=== PATIENT | male | born 1945 | race Two or more races ===

== ENCOUNTER 2019-08-20 08:05 | Emergency (ER) | payer MEDICARE ==
[~2019-08-20] VITALS: Ht 172.7 cm; Wt 70.3 kg
[2019-08-20 08:58] LABS: BASOPHILS PERCENT AUTO 1 % (0-2); EOSINOPHILS ABSOLUTE AUTO 0.45 K/mm3 (0.00-0.68); EOSINOPHILS PERCENT AUTO 5 % (0-6); Hematocrit 39.2 % (37.0-53.0); Hemoglobin 11.8 g/dL (13.5-17.5); IMMATURE GRAN ABSOLUTE AUTO 0.03 K/mm3 (0.00-0.10); IMMATURE GRAN PERCENT AUTO 0 % (0-1); LYMPHOCYTES ABSOLUTE AUTO 1.92 K/mm3 (0.84-5.20); LYMPHOCYTES PERCENT AUTO 21 % (21-46); MONOCYTES ABSOLUTE AUTO 0.73 K/mm3 (0.16-1.47); MONOCYTES PERCENT AUTO 8 % (4-13); Mean Corpuscular HGB 23.8 pg (26.0-34.0); Mean Corpuscular HGB Conc 30.1 g/dL (31.5-36.5); Mean Corpuscular Volume 79 fL (80-100); Mean Platelet Volume 10.4 fL (9.1-12.4); NEUTROPHILS ABSOLUTE AUTO 6.12 K/mm3 (1.96-9.15); NEUTROPHILS PERCENT AUTO 66 % (41-73); Platelet Count 299 K/mm3 (150-400); RDW Coefficient Variation 19.9 % (11.7-14.2); RDW Standard Deviation 55.3 fL (35.1-46.3); Red Blood Cell Count 4.95 M/mm3 (4.30-5.90); White Blood Cell Count 9.35 K/mm3 (4.00-11.30)
[2019-08-20 09:14] LABS: Alanine Aminotransfer (ALT/SGP 22 U/L (12-78); Albumin, Blood 3.3 g/dL (3.4-5.0); Albumin/Globulin Ratio 0.7 (0.8-1.8); Alk Phos 88 U/L (50-136); Anion Gap 7 mmol/L (6-16); Aspartate Aminotrans (AST/SGOT 30 U/L (12-37); Bilirubin, Total 0.4 mg/dL (0.1-1.0); Blood Urea Nitrogen 12 mg/dL (8-24); CO2, Blood 23 mmol/L (21-32); Calcium, Blood 9.1 mg/dL (8.5-10.1); Chloride, Blood 108 mmol/L (98-108); Creatinine, Blood 0.71 mg/dL (0.60-1.20); Globulin, Blood 4.5 g/dL (2.2-4.0); Glomerular Filtration Rate >60 (60-); Glucose, Blood 74 mg/dL (70-99); Potassium, Blood 4.1 mmol/L (3.5-5.5); Sodium, Blood 138 mmol/L (136-145); Total Protein, Blood 7.8 g/dL (6.4-8.2); Troponin I <0.015 ng/mL (0.000-0.040)
[2019-08-20] MEDS ORDERED: SILDENAFIL20 MG PO (09:39)
[2019-08-20] MEDS ORDERED: PROAIR RESPICL90 MCG INH (09:39)
[2019-08-20] MEDS ORDERED: Zocor20 MG PO ×2 (09:39→11:36)
[2019-08-20] MEDS ORDERED: DULO60 PO (09:40)
[2019-08-20] MEDS ORDERED: PANT40 PO (09:40)
[2019-08-20] MEDS ORDERED: FLUT1DIS8 INH ×2 (09:40→11:36)
[2019-08-20] MEDS ORDERED: CLOP75 PO ×2 (09:40→11:36)
[2019-08-20] MEDS ORDERED: MEMA10 PO ×2 (09:40→11:36)
[2019-08-20] MEDS ORDERED: SPIRIVA RESPIMAT4 GM (09:40)
[2019-08-20] MEDS ORDERED: LISI20 PO (09:41)
[2019-08-20] MEDS ORDERED: BUPR150ER PO ×2 (09:41→11:36)
[2019-08-20] MEDS ORDERED: METO50ER PO (09:41)
[2019-08-20] MEDS ORDERED: Ventolin/Prove6.7 GM INH (11:36)
[2019-08-20] MEDS ORDERED: Toprol Xl50 MG PO (11:36)
[2019-08-20] MEDS ORDERED: Cymbalta60 MG PO (11:36)
[2019-08-20] MEDS ORDERED: Protonix40 MG PO (11:36)
[2019-08-20] MEDS ORDERED: SPIRIVA RESPIMAT4 GM INH (11:36)
[2019-08-20] MEDS ORDERED: ZESTRIL40 MG PO (11:36)
[2019-08-20] MEDS ORDERED: SILD25T PO (11:36)
== END 2019-08-20 13:00 | disposition home or self-care (01) ==
LOC: EDBD 08:05 → ER 08:05
PROVIDERS: Emergency Medicine
DX: J44.9 Chronic obstructive pulmonary disease, unspecified (principal); I10 Essential (primary) hypertension; I25.2 Old myocardial infarction; F17.210 Nicotine dependence, cigarettes, uncomplicated; Z79.899 Other long term (current) drug therapy; Z79.02 Long term (current) use of antithrombotics/antiplatelets
CPT/HCPCS: 71046; 80053; 83880; 84484; 85025; 93005; 93010; 99284-25

== ENCOUNTER 2019-09-24 10:22 | Emergency (ER) | payer MEDICARE ==
[~2019-09-24] VITALS: Ht 172.7 cm; Wt 72.6 kg
[~2019-09-24 10:22] MED LIST: BUPR150ER PO; CLOP75 PO; Cymbalta60 MG PO; DULO60 PO; FLUT1DIS8 INH; LISI20 PO; MEMA10 PO; METO50ER PO; PANT40 PO; PROAIR RESPICL90 MCG INH; Protonix40 MG PO; SILD25T PO; SILDENAFIL20 MG PO; SPIRIVA RESPIMAT4 GM; SPIRIVA RESPIMAT4 GM INH; Toprol Xl50 MG PO; Ventolin/Prove6.7 GM INH; ZESTRIL40 MG PO; Zocor20 MG PO
[2019-09-24 11:34] LABS: BASOPHILS ABSOLUTE AUTO 0.09 K/mm3 (0.00-0.23); BASOPHILS PERCENT AUTO 1 % (0-2); EOSINOPHILS ABSOLUTE AUTO 0.24 K/mm3 (0.00-0.68); EOSINOPHILS PERCENT AUTO 3 % (0-6); Hematocrit 39.6 % (37.0-53.0); Hemoglobin 12.1 g/dL (13.5-17.5); IMMATURE GRAN ABSOLUTE AUTO 0.03 K/mm3 (0.00-0.10); IMMATURE GRAN PERCENT AUTO 0 % (0-1); LYMPHOCYTES ABSOLUTE AUTO 1.71 K/mm3 (0.84-5.20); LYMPHOCYTES PERCENT AUTO 18 % (21-46); MONOCYTES ABSOLUTE AUTO 0.83 K/mm3 (0.16-1.47); MONOCYTES PERCENT AUTO 9 % (4-13); Mean Corpuscular HGB 24.2 pg (26.0-34.0); Mean Corpuscular HGB Conc 30.6 g/dL (31.5-36.5); Mean Corpuscular Volume 79 fL (80-100); Mean Platelet Volume 10.4 fL (9.1-12.4); NEUTROPHILS ABSOLUTE AUTO 6.55 K/mm3 (1.96-9.15); NEUTROPHILS PERCENT AUTO 69 % (41-73); Platelet Count 277 K/mm3 (150-400); RDW Coefficient Variation 21.1 % (11.7-14.2); RDW Standard Deviation 60.3 fL (35.1-46.3); White Blood Cell Count 9.45 K/mm3 (4.00-11.30)
[2019-09-24 11:57] LABS: Alanine Aminotransfer (ALT/SGP 19 U/L (12-78); Albumin, Blood 3.2 g/dL (3.4-5.0); Albumin/Globulin Ratio 0.7 (0.8-1.8); Alk Phos 99 U/L (50-136); Anion Gap 5 mmol/L (6-16); Aspartate Aminotrans (AST/SGOT 26 U/L (12-37); Bilirubin, Total 0.5 mg/dL (0.1-1.0); Blood Urea Nitrogen 13 mg/dL (8-24); Bun/Creatinine Ratio 16.4 (12.0-20.0); CO2, Blood 27 mmol/L (21-32); Calcium, Blood 8.5 mg/dL (8.5-10.1); Chloride, Blood 106 mmol/L (98-108); Creatinine, Blood 0.79 mg/dL (0.60-1.20); Globulin, Blood 4.6 g/dL (2.2-4.0); Glomerular Filtration Rate >60 (60-); Glucose, Blood 88 mg/dL (70-99); Potassium, Blood 4.1 mmol/L (3.5-5.5); Sodium, Blood 138 mmol/L (136-145); Total Protein, Blood 7.8 g/dL (6.4-8.2); Troponin I <0.015 ng/mL (0.000-0.040)
[2019-09-24] MEDS ORDERED: Prednisone20 MG PO (13:23)
== END 2019-09-24 13:39 | disposition home or self-care (01) ==
LOC: ER 10:22
PROVIDERS: Emergency Medicine
DX: J44.1 Chronic obstructive pulmonary disease with (acute) exacerbation (principal); I10 Essential (primary) hypertension; I25.2 Old myocardial infarction; F17.210 Nicotine dependence, cigarettes, uncomplicated; D64.9 Anemia, unspecified; Z79.891 Long term (current) use of opiate analgesic; Z79.899 Other long term (current) drug therapy; Z79.02 Long term (current) use of antithrombotics/antiplatelets
CPT/HCPCS: 36415; 71046; 80053; 84484; 85025; 93005; 93010; 94644; 96374; 96375; 99284-25; J1885; J2930